=== PATIENT | female | born 1965 | race Caucasian/White ===

== ENCOUNTER 2023-04-02 17:07 | Emergency (ER) | payer SELFPAY ==
[~2023-04-02] VITALS: Ht 154.9 cm; Wt 59.0 kg
[2023-04-02 17:37] LABS: BASOPHILS % 0.4 % (0.0-2.0); EOSINOPHILS % 1.9 % (0.0-5.0); HEMATOCRIT. 38.6 % (36.0-48.0); HEMOGLOBIN. 13.5 g/dL (12.0-16.0); LYMPHOCYTES % 48.4 % (20.0-50.0); MEAN CORPUSCULAR HEMOGLOBIN 31.1 pg (28.0-32.0); MEAN CORPUSCULAR VOLUME 89.1 fL (81.0-99.0); MEAN PLATELET VOLUME 7.1 fl (7.4-10.4); MONOCYTES % 7.9 % (2.0-8.0); NEUTROPHILS % 41.4 % (40.0-76.0); PLATELET 336 x1000/uL (130-400); RED BLOOD CELL COUNT 4.33 mill/uL (4.2-5.4); RED CELL DISTRIBUTION WIDTH 13.8 % (11.6-14.6)
[2023-04-02] MEDS ORDERED: KETOROLAC 15MG/ML VIAL IV ONE (17:45)
[2023-04-02] MEDS ORDERED: DIPHENHYDRAMINE 50MG/ML VIAL IV ONE (17:45)
[2023-04-02] MEDS ORDERED: METOCLOPRAMIDE HCL 10MG/2ML VIAL IV ONE (17:45)
[2023-04-02 17:46] LABS: CHLORIDE 103 mEq/L (98-107)
[2023-04-02 17:50] LABS: CLARITY URINE CLEAR (CLEAR); COLOR URINE YELLOW (YELLOW); KETONES URINE NEGATIVE (NEGATIVE); LEUKOCYTE ESTERASE URINE TRACE (NEGATIVE); NITRITE URINE NEGATIVE (NEGATIVE); OCCULT BLOOD URINE NEGATIVE (NEGATIVE); PH URINE 7.5 (4.5-8.0); PROTEIN URINE NEGATIVE (NEGATIVE); SPECIFIC GRAVITY URINE 1.004 (1.005-1.030); UROBILINOGEN URINE 0.2 E.U./dL (0.2-1.0)
[2023-04-02] MEDS ORDERED: IBUP-2028 MT (19:41)
[2023-04-02 20:08] VITALS: BP 154/75
== END 2023-04-02 20:08 | disposition home or self-care (01) ==
LOC: ER 17:07
DX: R51.9 Headache, unspecified (principal); E11.9 Type 2 diabetes mellitus without complications; E78.00 Pure hypercholesterolemia, unspecified
CPT/HCPCS: 36415; 80053; 81003; 82962; 85025; 85651; 96374; 96375; 99284; J1200; J1885; J2765; Z7610

== ENCOUNTER 2023-04-05 19:32 | Emergency (ER) | payer SELFPAY ==
[~2023-04-05] VITALS: Ht 160 cm; Wt 57.2 kg
[~2023-04-05 19:32] MED LIST: IBUP-2028 MT
[2023-04-06] VITALS: BP 153/85
[2023-04-06] MEDS ORDERED: KETOROLAC 60MG/2ML VIAL IM ONE
== END 2023-04-06 02:17 | disposition home or self-care (01) ==
LOC: ER 19:32
DX: R51.9 Headache, unspecified (principal); E11.9 Type 2 diabetes mellitus without complications; E78.00 Pure hypercholesterolemia, unspecified
CPT/HCPCS: 70450; 96372; 99285; J1885